=== PATIENT | female | born 1955 | race Caucasian/White ===

== ENCOUNTER 2016-10-25 09:08 | Emergency (ER) | payer OTHER ==
[2016-10-25 09:10] VITALS: BP 140/70; PULSE 66; RESP 18; TEMP 98.5; O2SAT 100
--- NOTE | 2016-10-25 09:42 | PD ---
HPI Chief Complaint: Injury Time Seen by Provider: 09:19 Travel History International Travel<30 days: No Contact w/Intl Traveler<30days: No Traveled to known affect area: No History of Present Illness HPI 60-year-old female here with complaint of right elbow pain. Patient slipped and fell yesterday and landed on an outstretched hand, with her right elbow/arm behind her. She did not actually hit the elbow but rather caught her body with the right upper extremity as she was falling. Patient has had mild pain in the right elbow since the fall. She does not notice any deformity but states that she cannot completely flex nor completely extend at the elbow. Pain is present only with movement. Denies any numbness or tingling. PFSH Past Medical History Medical History: Denies Significant Hx ?: Not Tubal Ligation: Yes Social History Alcohol Use: Yes (socially) Tobacco Use: No Substance Use: No Allergies-Medications (Allergen,Severity, Reaction): Coded Allergies: No Known Allergies (Unverified , 10/25/16) Reported Meds & Prescriptions Reported Meds & Active Scripts Active No Active Prescriptions or Reported Medications Review of Systems Except as stated in HPI: all other systems reviewed are Neg Physical Exam Narrative GENERAL: Well-appearing female in no acute distress SKIN: Focused skin assessment warm/dry. HEAD: Normocephalic. EYES: No scleral icterus. No injection or drainage. ENT: Mucous membranes pink and moist. NECK: Supple CARDIOVASCULAR: Regular rate and rhythm. RESPIRATORY: No accessory muscle use MUSCULOSKELETAL: Right upper extremity without any obvious deformity. There is no noted swelling around the elbow. Patient holds the elbow at approximately 110 for comfort. She is able to flex beyond 90 but is able to extend approximately 15 short of full extension. When she does extend patient complains of a pulling sensation over the dorsal lateral aspect of the elbow. There is no palpable crepitus. Good distal sensation, pulses. 4+ out of 5 strength with flexion and extension at the elbow. 5 out of 5 with supination and pronation. NEUROLOGICAL: Awake and alert. Normal speech. PSYCHIATRIC: Appropriate mood and affect; insight and judgment normal. Data Data Last Documented VS Vital Signs Date Time Temp Pulse Resp B/P Pulse Ox O2 Delivery O2 Flow Rate FiO2 10/25/16 09:10 98.5 66 18 140/70 100 Room Air Orders Elbow, Complete (4 Vws) (10/25/16 ) Support Splint (10/25/16 10:00) Support Splint (10/25/16 10:00) MDM Medical Decision Making Medical Screen Exam Complete: Yes Emergency Medical Condition: Yes Medical Record Reviewed: Yes Differential Diagnosis 60-year-old female here with right elbow pain times one day after slip and fall. Differential includes fracture, dislocation, strain or sprain. Narrative Course X-rays of the right elbow showed a nondisplaced coronoid fracture fragment suspected with elbow joint effusion. Patient was placed in long arm splint, sling and will be discharged home with orthopedic surgery follow-up. She is here on vacation from [place]. She was given her images in radiology read on a disc to follow-up with orthopedic surgery and [place]. Diagnosis Primary Impression: Fracture of coronoid process of ulna, right, closed Qualified Code: S52.044A - Closed nondisplaced fracture of coronoid process of right ulna, initial encounter Referrals: Orthopedist 1 week Additional Instructions: Tylenol, Motrin, Aleve as needed for pain. Follow-up with orthopedic surgery in 7-10 days as discussed. Med/Other Pt SpecificInfo: No Change to Meds Scripts No Active Prescriptions or Reported Meds Disposition: DISCHARGE HOME Condition: Stable Nury Jenkins MD Oct 25, 2016 09:42
--- NOTE | 2016-10-25 09:51 | RADRPT ---
EXAM DATE/TIME: 10/25/2016 09:23 [facility] COMPARISON: No previous studies available for comparison. INDICATIONS : Trauma/ Fall x 1 day. Posterior elbow pain. MEDICAL HISTORY : None. SURGICAL HISTORY : None. ENCOUNTER: Initial ACUITY: 1 day PAIN SCORE: 5/10 LOCATION: Right Elbow FINDINGS: There is a small elbow joint effusion with anterior fat pad sign. There is a nondisplaced fracture erica cency suspected through the coronoid process. CONCLUSION: Nondisplaced coronoid fracture fragment suspected with elbow joint effusion. Torey Jacome MD on October 25, 2016 at 9:48 Board Certified Radiologist. This report was verified electronically.
== END 2016-10-25 10:44 | disposition home or self-care (01) ==
LOC: NEPD 09:08
DX: S52.044A Nondisplaced fracture of coronoid process of right ulna, initial encounter for closed fracture (principal); W01.0XXA Fall on same level from slipping, tripping and stumbling without subsequent striking against object, initial encounter
CPT/HCPCS: 29105; 73080